=== PATIENT | female | born 1955 | race Caucasian/White ===

== ENCOUNTER 2016-11-24 17:03 | Emergency (ER) | payer OTHER ==
[2016-11-24] MEDS ORDERED: IPRATROPIUM/ALBUTEROL 3 ML DEYVIAL IH ONE (17:20)
[2016-11-24 17:38] VITALS: PULSE 101; TEMP 98.2
--- NOTE | 2016-11-24 17:41 | UCPHY ---
H & P Time Seen by Provider: 11/24/16 17:18 Patient Type: Established HPI/ROS: This patient presents with a chief complaint of a persistent cough which started on the 11 of November and seems to be worsening such that she is having difficulty sleeping. A time she has coughed to the degree that she feels like she might vomit although she is not. She also has sore throat, nasal congestion and plugged ears. She feels short of breath with an achy chest and headache. She attributes a lot of the symptoms to her persistent cough. She does not think she has had fever. 2 days ago he was seen by her primary care physician and she has been on 40 mg of prednisone and Augmentin since. She does not think the medications have helped. She did have a test for pertussis done which is reportedly negative. She has a child at home with similar symptoms. REVIEW OF SYSTEMS: Constitutional: The no fever, positive for malaise Eyes: No complaints ENT: Sore throat, nasal congestion, plugged ears Respiratory: Persistent cough sometimes productive, shortness of breath Cardiac: Achy chest Gastrointestinal: Nausea without vomiting or diarrhea, no abdominal pain Genitourinary: Not addressed Musculoskeletal: Not addressed Skin: No rash Neurological: Headache Smoking Status: Never smoked Physical Exam: GENERAL: Well-appearing, well-nourished she has a persistent hacky cough which seems to be precipitated by expiration and speaking HEAD: Atraumatic, normocephalic. EYES: Pupils equal round and reactive to light, extraocular movements intact, sclera anicteric, conjunctiva are normal. ENT: TMs normal, nares patent, oropharynx clear without exudates. Moist mucous membranes. NECK: Normal range of motion, supple without lymphadenopathy or JVD. LUNGS: This exam was done after the administration of 1 DuoNeb. I heard minimal wheezing in the expiratory phase of respiration did not seem to be prolonged HEART: Regular rate and rhythm EXTREMITIES: Normal range of motion, NEUROLOGICAL: Cranial nerves II through XII grossly intact. Normal speech, normal gait. PSYCH: Normal mood, normal affect. SKIN: Warm, dry, normal turgor, no visible rashes or lesions. Constitutional: Initial Vital Signs Temperature (C) 36.8 C 11/24/16 17:36 Heart Rate 101 H 11/24/16 17:36 Respiratory Rate 24 H 11/24/16 17:36 Blood Pressure 161/103 H 11/24/16 17:36 O2 Sat (%) 91 L 11/24/16 17:36 O2 Delivery Mode Room Air Allergies/Adverse Reactions: codeine Allergy (Verified 11/24/16 17:31) gentamicin sulfate [From Garamycin] Allergy (Verified 11/24/16 17:31) Home Medications: Medication Instructions Recorded ALBUTEROL SULFATE 11/24/16 Albuterol Sulfate [ALBUTEROL 0.63 mg IH QID #20 vial.neb 11/24/16 SULFATE] Augmentin 1000MG ER Tablet (*) 11/24/16 Prednisone 11/24/16 Zithromax 11/24/16 Medical Decision Making - Diagnostics Imaging: A chest x-ray shows no evidence of pneumonia but does show some evidence for acute bronchitis. ED Course/Re-evaluation: The patient was given 1 DuoNeb prior to my evaluation. Differential Diagnosis: This patient seems to be receiving maximal therapy at this time. I feel it is safe for her to go home since she does not have pneumonia. The - Data Points Medications Given: Discontinued Medications Albuterol/Ipratropium (Duoneb) 3 ml IH EDNOW ONE Stop: 11/24/16 17:21 Last Admin: 11/24/16 17:20 Dose: 3 ml Departure - Departure Disposition: Home, Routine, Self-Care Clinical Impression: Asthma exacerbation Acute bronchitis Qualifiers: Bronchitis organism: unspecified organism Qualifier Code: (J20.9) Acute bronchitis, unspecified Condition: Good Instructions: Acute Bronchitis (ED), Bronchospasm (ED) Additional Instructions: If your symptoms have not improved in the next 2 or 3 days you should follow-up with your primary care physician. Continue using your medications as prescribed. Referrals: Liberty Quintanilla MD [Primary Care Provider] - As per Instructions Prescriptions: Albuterol Sulfate [ALBUTEROL SULFATE] 0.63 mg IH QID #20 vial.neb - PQRS PQRS Measurement: Not applicable
--- NOTE | 2016-11-24 17:43 | DX ---
PA and Lateral Chest X-Ray 1736 hours History: Persistent cough and wheezing. Findings: Heart size and pulmonary vasculature are normal. There is arteriosclerotic calcification at the aortic arch level. There is mild peribronchial cuffing seen in the perihilar region and promin ence of perihilar interstitial markings. There are no peripheral infiltrates or effusions. Mild degen erative osteophytes are noted mid thoracic spine. Impression: Mild prominence of perihilar interstitial markings and peribronchial cuffing. Findings ar e nonspecific but can be seen with bronchitis, reactive airway disease, or viral process.
[2016-11-24 18:12] VITALS: BP 146/97; RESP 20; O2SAT 92
== END 2016-11-24 18:13 | disposition home or self-care (01) ==
LOC: CED 17:03
DX: J45.901 Unspecified asthma with (acute) exacerbation (principal); J20.9 Acute bronchitis, unspecified
CPT/HCPCS: 71020-PO; 99214-PO; G0463-PO

== ENCOUNTER 2018-09-09 15:29 | Inpatient (IN) | payer OTHER ==
[2018-09-09] MEDS ORDERED: ONDANSETRON 4 MG/2 ML VIAL IVP ONE ×2 (15:40→19:00)
[2018-09-09] MEDS ORDERED: HYDROmorphONE/DILAUDID 2 MG/ML INJ IVP ONE ×3 (15:40→18:49)
[2018-09-09] MEDS ORDERED: NS 1,000 ML IV ONE (15:40)
--- NOTE | 2018-09-09 15:44 | EDPHY ---
H & P Time Seen by Provider: 09/09/18 15:38 HPI/ROS: CHIEF COMPLAINT: Epigastric pain HISTORY OF PRESENT ILLNESS: The patient is a 63-year-old female who comes to the emergency department complaining of nausea, vomiting, diarrhea and abdominal pain. She reports 4 episodes of vomiting this morning and 6 episodes of diarrhea. Nonbloody. No fever. She also describes bloating and epigastric pain. She states that this is somewhat similar to gallbladder attack she had 4 years ago. She has not had any abdominal surgeries. She denies urinary symptoms. No vaginal symptoms. No chest pain or shortness of breath. She states that she has had similar episodes twice over the last 3 weeks. Each time it lasted for about half of a day and then resolved spontaneously. Severity: Severe Modifying factors: None REVIEW OF SYSTEMS: Constitutional: denies: chills, fever, recent illness, recent injury EENTM: denies: blurred vision, double vision, nose congestion Respiratory: denies: cough, shortness of breath Cardiac: denies: chest pain, irregular heart rate, lightheadedness, palpitations Gastrointestinal/Abdominal: See HPI Genitourinary: denies: dysuria, frequency, hematuria, pain Musculoskeletal: denies: joint pain, muscle pain Skin: denies: lesions, rash, jaundice, bruising Neurological: denies: headache, numbness, paresthesia, tingling, dizziness, weakness Hematologic/Lymphatic: denies: blood clots, easy bleeding, easy bruising Immunologic/allergic: denies: HIV/AIDS, transplant 10 systems reviewed and negative except as noted EXAM: GENERAL: Uncomfortable appearing, moderate distress. HEAD: Atraumatic, normocephalic. EYES: Pupils equal round and reactive to light, extraocular movements intact, sclera anicteric, conjunctiva are normal. ENT: TMs normal, nares patent, oropharynx clear without exudates. Moist mucous membranes. NECK: Normal range of motion, supple without lymphadenopathy or JVD. LUNGS: Breath sounds clear to auscultation bilaterally and equal. No wheezes rales or rhonchi. HEART: Regular rate and rhythm without murmurs, rubs or gallops. ABDOMEN: Mild distention, mild epigastric tenderness. No lower abdominal tenderness. BACK: No CVA tenderness, no spinal tenderness, step-offs or deformities EXTREMITIES: Normal range of motion, no pitting or edema. No clubbing or cyanosis. NEUROLOGICAL: Cranial nerves II through XII grossly intact. Normal speech, normal gait. 5/5 strength, normal movement in all extremities, normal sensation , normal reflexes PSYCH: Normal mood, normal affect. SKIN: Warm, dry, normal turgor, no visible rashes or lesions. Source: Patient, Family, EMS Exam Limitations: No limitations - Personal History Tetanus Vaccine Date: unsure - Medical/Surgical History Hx Asthma: Yes Hx Chronic Respiratory Disease: No Hx Diabetes: No Hx Cardiac Disease: No Hx Renal Disease: No Hx Cirrhosis: No Hx Alcoholism: No Hx HIV/AIDS: No Hx Splenectomy or Spleen Trauma: No Other PMH: d&c - Family History Significant Family History: No pertinent family hx - Social History Smoking Status: Never smoked Alcohol Use: None Drug Use: None Constitutional: Initial Vital Signs Temperature (C) 36.5 C 09/09/18 15:40 Heart Rate 98 09/09/18 15:40 Respiratory Rate 16 09/09/18 15:40 Blood Pressure 165/116 H 09/09/18 15:40 O2 Sat (%) 97 09/09/18 15:40 O2 Delivery Mode Room Air Allergies/Adverse Reactions: codeine Allergy (Verified 09/09/18 18:09) gentamicin sulfate [From Garamycin] Allergy (Verified 09/09/18 18:09) Home Medications: Medication Instructions Recorded Albuterol Sulfate [ALBUTEROL 0.63 mg IH QID #20 vial.neb 11/24/16 SULFATE] Medical Decision Making - Diagnostics EKG Interpretation: An EKG obtained and was read and documented in trace view. Please see trace view for full reading and report. Sinus rhythm, no acute ischemic changes Imaging Results: Imaging Impressions Abdomen Ultrasound 09/09/18 15:42 Impression: 1. Intra and extrahepatic biliary dilatation. ERCP or MRCP may be useful for further evaluation. 2. Cholelithiasis without evidence of cholecystitis. Findings discussed with ANDREA PEARSON 09/09/2018 at 16:48. Abdomen CT 09/09/18 16:55 Impression: 1. Cholelithiasis with choledocholithiasis and moderate biliary ductal dilatation. 2. No CT evidence of appendicitis, abscess or bowel obstruction. Findings discussed with Andrea Pearson M.D. at 18:42 hour, 09/09/2018. Imaging: Discussed imaging studies w/ scallop cutter Radiologist ED Course/Re-evaluation: 4:50 p.m. the patient felt better initially but her pain is returning. She is also not complaining of pain in her right lower quadrant. She has an indeterminate ultrasound. There gallstones present and a slightly dilated common bile duct however normal LFTs and no sign of wall thickening or edema or distension on ultrasound. I will add on a lipase which will need to be Curriered to [place]. I will also add on a CT scan. 6:45 p.m. the patient has choledocholithiasis. She has continued pain and is asking for 3rd dose of Dilaudid. I recommended admission the hospital. She and her family agree. I have paged the hospitalist service for admission. 6:50 p.m. the patient and would prefer to drive themselves. I spoke with Dr. Velázquez who accepted admission. Differential Diagnosis: Partial list of the Differential diagnosis considered include but were not limited to; biliary disease, peptic ulcer disease, urinary tract infection and although unlikely based on the history and physical exam, I also considered kidney stone, appendicitis, diverticulitis, obstruction, volvulus. - Data Points Laboratory Results: 09/09/18 09/09/18 09/09/18 17:20 16:02 15:59 POC Sodium 141 mEq/L mEq/L (135-145) POC Potassium 3.7 mEq/L mEq/L (3.3-5.0) POC Chloride 104.0 mEq/L mEq/L (97-110) POC Total CO2 24 mEq/L mEq/L (22-31) POC BUN 11 mg/dL mg/dL (7-23) POC Creatinine 0.7 mg/dL mg/dL (0.6-1.0) POC Glucose 116 mg/dL H mg/dL (70-100) POC Calcium 10.0 mg/dL mg/dL (8.5-10.4) POC Total Bilirubin 0.6 mg/dL mg/dL (0.1-1.4) POC AST 30 IU/L IU/L (14-46) POC ALT 24 IU/L IU/L (9-52) POC Alk Phosphatase 82 IU/L IU/L (38-126) POC Troponin I 0.00 ng/mL ng/mL (0.00-0.08) POC Total Protein 7.9 g/dL g/dL (6.3-8.2) POC Albumin 4.2 g/dL g/dL (3.5-5.0) Lipase Urine RBC NONE SEEN /hpf /hpf (0-3) Urine WBC 1-3 /hpf /hpf (0-3) Ur Epithelial Cells NONE SEEN /lpf /lpf (NONE-1+) Amorphous Sediment PRESENT /hpf /hpf (NONE-1+) Urine Mucus TRACE /lpf /lpf (NONE-1+) 09/09/18 15:50 POC Sodium POC Potassium POC Chloride POC Total CO2 POC BUN POC Creatinine POC Glucose POC Calcium POC Total Bilirubin POC AST POC ALT POC Alk Phosphatase POC Troponin I POC Total Protein POC Albumin Lipase 50 IU/L IU/L (23-300) Urine RBC Urine WBC Ur Epithelial Cells Amorphous Sediment Urine Mucus Medications Given: Discontinued Medications Hydromorphone HCl (Dilaudid) 0.5 mg IVP EDNOW ONE Stop: 09/09/18 15:41 Last Admin: 09/09/18 16:04 Dose: 0.5 mg Hydromorphone HCl (Dilaudid) 0.5 mg IVP EDNOW ONE Stop: 09/09/18 16:55 Last Admin: 09/09/18 17:22 Dose: 0.5 mg Hydromorphone HCl (Dilaudid) 0.5 mg IVP EDNOW ONE Stop: 09/09/18 18:50 Last Admin: 09/09/18 18:57 Dose: 0.5 mg Sodium Chloride (Ns) 1,000 mls @ 0 mls/hr IV EDNOW ONE; Wide Open PRN Reason: Protocol Stop: 09/09/18 15:41 Last Admin: 09/09/18 15:50 Dose: 1,000 mls Ondansetron HCl (Zofran) 4 mg IVP EDNOW ONE Stop: 09/09/18 15:41 Last Admin: 09/09/18 16:01 Dose: 4 mg Ondansetron HCl (Zofran) 4 mg IVP EDNOW ONE Stop: 09/09/18 19:01 Last Admin: 09/09/18 19:05 Dose: 4 mg Promethazine HCl (Phenergan) 12.5 mg IVP ONCE ONE Stop: 09/09/18 19:44 Last Admin: 09/09/18 19:52 Dose: 12.5 mg Point of Care Test Results: CBC CBC Collection Date 09/09/18 CBC Collection Time 15:50 WBC 9.2 RBC 4.92 HGB 15 HCT 44.8 PLT 295 Neut # 8.1 Neut 87.4 LYMPH # 0.9 LYMPH 10.1 Other WBC # 0.2 Other WBC 2.5 MCV 91.1 Chemistry 09/09/18 09/09/18 16:02 15:59 POC Sodium 141 mEq/L mEq/L (135-145) POC Potassium 3.7 mEq/L mEq/L (3.3-5.0) POC Chloride 104.0 mEq/L mEq/L (97-110) POC Total CO2 24 mEq/L mEq/L (22-31) POC BUN 11 mg/dL mg/dL (7-23) POC Creatinine 0.7 mg/dL mg/dL (0.6-1.0) POC Glucose 116 mg/dL H mg/dL (70-100) POC Calcium 10.0 mg/dL mg/dL (8.5-10.4) POC Total Bilirubin 0.6 mg/dL mg/dL (0.1-1.4) POC AST 30 IU/L IU/L (14-46) POC ALT 24 IU/L IU/L (9-52) POC Alk Phosphatase 82 IU/L IU/L (38-126) POC Troponin I 0.00 ng/mL ng/mL (0.00-0.08) POC Total Protein 7.9 g/dL g/dL (6.3-8.2) POC Albumin 4.2 g/dL g/dL (3.5-5.0) Urine Dip Collection Date 09/09/18 Collection Time 17:20 Specific [place] (1.002-1.030) 1.015 PH (5.0-7.5) 7.5 Leukocytes (Negative) Trace Nitrites (Negative) Negative Protein (Negative) Negative Glucose (Negative) Negative Ketones (Negative) 2+ Urobilnogen (0.2-1.0 EU) 0.2 Bilirubin (Negative) Negative Blood (Negative) Negative Departure - Departure Disposition: [facility] Acute Clinical Impression: Choledocholithiasis Condition: Fair
--- NOTE | 2018-09-09 16:25 | CPEKG ---
Test Reason : OPEN Blood Pressure : / mmHG Vent. Rate : 079 BPM Atrial Rate : 080 BPM P-R Int : 158 ms QRS Dur : 100 ms QT Int : 433 ms P-R-T Axes : 063 021 031 degrees QTc Int : 497 ms Sinus rhythm Borderline prolonged QT interval Confirmed by Luis Dubose ([id number]) on 09/09/2018 4:24:57 PM Referred By: Confirmed By:Luis Dubose
[2018-09-09] MEDS ORDERED: IOPAMIDOL (ISOVUE-300) 100 ML BTL ONE (17:17)
[2018-09-09] MEDS ORDERED: PROMETHAZINE HCL 25 MG/ML INJ IVP ONE (19:43)
[2018-09-09] MEDS ORDERED: PROMETHAZINE HCL 25 MG/ML INJ ONE (19:46)
[2018-09-09] MEDS ORDERED: HYDROmorphONE/DILAUDID 1 MG/ML INJ IVP PRN (20:41)
[2018-09-09] MEDS ORDERED: ONDANSETRON DISINTEGRATING 4 MG TAB PO PRN (20:41)
[2018-09-09] MEDS ORDERED: ONDANSETRON 4 MG/2 ML VIAL IVP PRN (20:41)
[2018-09-09] MEDS: NS 1,000 ML IV SCH (22:00)
[2018-09-09] MEDS: PROMETHAZINE HCL 25 MG/ML INJ IVP PRN (22:10)
--- NOTE | 2018-09-10 00:39 | PDGENHP ---
History and Physical - Chief Complaint Abdominal pain, nausea and vomiting - History of Present Illness Source-patient provides history appears reliable. Her is at bedside supplements details. EMR was reviewed and case discussed with accepting hospitalist. HPI-this is a very pleasant 63-year-old female with past medical history significant for mild intermittent asthma, history of cholelithiasis who presents to the emergency department today with complaints of several days of intermittent and now persistent epigastric pain. Patient reports that she has had several episodes of nausea/vomiting and diarrhea. She denies any hematemesis, melena or hematochezia. Patient reports occasional chills but no fevers. Reports that for the last 3 weeks she has had approximately 1 episode similarly but symptoms usually resolved after half a day. Today's pain was more severe and did not resolve on its own. Patient denies any scleral icterus or jaundice. Patient also endorses abdominal distension bloating and epigastric pain radiating down her right anterior abdomen. Patient denies any dysuria hematuria. History Information - Allergies/Home Medication List Allergies/Adverse Reactions: codeine Allergy (Verified 09/09/18 18:09) gentamicin sulfate [From Garamycin] Allergy (Verified 09/09/18 18:09) I have personally reviewed and updated: family history, medical history, social history, surgical history - Past Medical History asthma Additional medical history: Cholelithiasis - Surgical History Additional surgical history: Patient denies. - Family History Additional family history: Mother and father with gallbladder disease - Social History Smoking Status: Never smoked Alcohol Use: None Drug Use: None Additional social history: Patient is lives with her . Cor status-full. Review of Systems Review of Systems: ROS: 10pt was reviewed & negative except for what was stated in HPI & below Constitutional: Reports: chills. Denies: fever EENMT: Reports: no symptoms Cardiac: Denies: edema, irregular heart rate Respiratory: Reports: no symptoms Gastrointestinal: Reports: vomitting, abdominal pain, abdominal distention, diarrhea, nausea Genitourinary: Reports: no symptoms Muscolosketal: Reports: no symptoms Skin: Reports: no symptoms Neurological: Reports: no symptoms Physical Exam Physical Exam: Selected Entries 09/09/18 15:40 Blood Pressure Automatic Method Heart Rate 98 Respiratory 16 Rate O2 Sat (%) 97 Temperature (C) 36.5 C Blood Pressure 165/116 H Mean Arterial 132 H Pressure (MAP) O2 Delivery Room Air Mode Temperature Oral Source Temp Pulse Resp BP Pulse Ox 36.8 C 81 16 122/82 H 90 L 09/09/18 22:48 09/09/18 22:48 09/09/18 22:48 09/09/18 22:48 09/09/18 22:48 O2 (L/minute) 2 Constitutional: no apparent distress, uncomfortable, other (NAD. Patient is asleep at time of interview she wakes easily to name. She does appear increasingly uncomfortable when woken up and crater ulcer abdomen. at bedside. Patient appears quite fatigued but nontoxic.) Eyes: PERRL (Decreased reactivity light bilaterally but symmetric.), anicteric sclera, EOMI Ears, Nose, Mouth, Throat: dry mucous membranes, other (No nasal discharge), No poor dentition Cardiovascular: regular rate and rhythym, no murmur, rub, or gallop, pulses symmetric bilaterally, No edema Peripheral Pulses: 2+: dorsalis-pedis (R), dorsalis-pedis (L) Respiratory: no respiratory distress, no rales or rhonchi, clear to auscultation , reduced air movement (Decreased inspiratory effort with clear.) Gastrointestinal: no palpable masses, tenderness (Diffuse abdominal pain with light palpation upper abdomen.), distension, other (Hypoactive bowel sounds.), No guarding Genitourinary: no bladder tenderness, No gimenez in urethra Skin: warm, no rashes or abrasions, No pressure ulcer Musculoskeletal: generalized weakness (Patient still moves all extremities and sits up independently.), No pain with ROM Neurologic: AAOx3, sensation intact bilaterally, other (Grossly nonfocal), No facial droop Psychiatric: interacting appropriately, not anxious, not encephalopathic, thought process linear, other, No poor insight, No poor judgement, No poor memory Lab Data & Imaging Review POC Sodium 141 mEq/L (135-145) 09/09/18 15:59 POC Potassium 3.7 mEq/L (3.3-5.0) 09/09/18 15:59 POC Chloride 104.0 mEq/L (97-110) 09/09/18 15:59 POC Total CO2 24 mEq/L (22-31) 09/09/18 15:59 POC BUN 11 mg/dL (7-23) 09/09/18 15:59 POC Creatinine 0.7 mg/dL (0.6-1.0) 09/09/18 15:59 POC Glucose 116 mg/dL (70-100) H 09/09/18 15:59 POC Calcium 10.0 mg/dL (8.5-10.4) 09/09/18 15:59 POC Total Bilirubin 0.6 mg/dL (0.1-1.4) 09/09/18 15:59 POC AST 30 IU/L (14-46) 09/09/18 15:59 POC ALT 24 IU/L (9-52) 09/09/18 15:59 POC Alk Phosphatase 82 IU/L (38-126) 09/09/18 15:59 POC Troponin I 0.00 ng/mL (0.00-0.08) 09/09/18 16:02 POC Total Protein 7.9 g/dL (6.3-8.2) 09/09/18 15:59 POC Albumin 4.2 g/dL (3.5-5.0) 09/09/18 15:59 Lipase 50 IU/L (23-300) 09/09/18 15:50 Urine RBC NONE SEEN /hpf (0-3) 09/09/18 17:20 Urine WBC 1-3 /hpf (0-3) 09/09/18 17:20 Ur Epithelial Cells NONE SEEN /lpf (NONE-1+) 09/09/18 17:20 Amorphous Sediment PRESENT /hpf (NONE-1+) 09/09/18 17:20 Urine Mucus TRACE /lpf (NONE-1+) 09/09/18 17:20 WBC 9.2, H/H 15/44.8, plt 295, neutrophil %87.4 Imaging Review: Limited Right Upper Quadrant Ultrasound History: RUQ Abd Pain, possible cholelithiasis. Comparison: None available. Findings: The liver has normal echotexture and contour. The right lobe of the liver measures 18.7 cm. There is mild intrahepatic biliary dilatation. The common bile duct is 10.2 mm. No stones are identified in the visible portions of the common bile duct. Multiple gallstones are present in an otherwise normal gallbladder. The right kidney measures 9.1 cm. The kidney has normal echotexture and contour without hydronephrosis. The visible aorta is normal caliber . The visible portions of the pancreas are normal with limited visualization of the pancreatic head and tail. Impression: 1. Intra and extrahepatic biliary dilatation. ERCP or MRCP may be useful for further evaluation. 2. Cholelithiasis without evidence of cholecystitis. CT Scan of the Abdomen and Pelvis (With Contrast) 1807 hours History: Abdominal pain Technique: Axial computed tomographic images of the abdomen and pelvis were obtained with the uneventful intravenous administration of 90 mL Isovue-300 contrast. Images were reviewed in multiple planes. Dose reduction techniques were utilized. Comparison to right upper quadrant abdominal ultrasound performed earlier today at [address] Abdomen and Pelvis Findings: Biliary system: Numerous calcified gallstones are layering in the dependent aspect of the gallbladder. There is moderate biliary ductal dilatation with the common bile duct measuring up to 13 mm in diameter. Within the distal common bile duct just above the duodenum there is a 2 mm calculus. Mild intrahepatic biliary ductal dilatation is seen centrally. Lung bases: Normal. Liver: There are scattered small subcentimeter hypodensities in the liver statistically representing incidental cysts.. Spleen: Normal. Pancreas: Normal. Adrenals: Normal. Kidneys: No obstruction or solid masses. Abdominal Aorta: No aneurysm. Pelvic structures: The uterus has a normal contour. No adnexal masses are seen. Bladder: Normal. Appendix: Not visualized. Bowel Loops: Normal. No bowel obstruction, ascites, or significant retroperitoneal lymphadenopathy. Skeletal system: Vertebral body heights are well-maintained. There are no significant lytic or sclerotic osseous lesions. Impression: 1. Cholelithiasis with choledocholithiasis and moderate biliary ductal dilatation. 2. No CT evidence of appendicitis, abscess or bowel obstruction. Findings discussed with Luis Dubose M.D. at 18:42 hour, 09/09/2018. Dictated By: Ralph Meade MD Visualized and Interpreted imaging results: Yes EKG additional interpertation: NSR in the 70s. No acute ST changes. QTC 497. Normal EKG. Assessment & Plan Assessment: Pleasant 63-year-old female with past medical history significant for mild intermittent asthma and cholelithiasis who presents with complaints of intractable epigastric abdominal pain and distension. #Choledocholithiasis (Acute) with biliary dilation-2 mm distal stone is noted on CT scan with a dilated biliary tract of 13 mm. GI consulted for further evaluation consideration of intervention for biliary obstruction. consulted and he will see the patient in the morning. Patient's initial laboratory studies without any rise in LFTs. Repeat CMP has been ordered for a.m.. Discussed with patient and her regarding plan for GI evaluation and possible ERCP. In addition recommend and the patient also be evaluated by General surgery for consideration of cholecystectomy. and previously knew about gallstones and had a plan to manage with dietary control. They are not sure that they would want to consider an inpatient cholecystectomy and desired to discuss after reviewing details of their insurance coverage. #Intractable abdominal pain - epigastric abdominal pain secondary to choledocholithiasis/biliary obstruction. Plan as noted above. #Nausea vomiting - currently controlled. Zofran p.r.n.. #Asthm, mild intermittent -no current exacerbation. albuterol p.r.n. FEN - IV fluids overnight while NPO. Electrolyte monitoring replacement if needed. PPX-SCDs. Holding anticoagulation until further evaluation by GI. Cor status-full. Disposition-patient admitted to inpatient status on the med surge floor given the evidence of obstructive process anticipate greater than 2 midnight stay for additional evaluation and possible intervention.
[2018-09-10 05:12] LABS: PLATELET COUNT 253 10^3/uL (150-400)
[2018-09-10] MEDS: NS 1,000 ML IV SCH (08:33)
[2018-09-10] MEDS: ACETAMINOPHEN 325 MG TAB PO PRN ×2 (08:36→22:16)
[2018-09-10] MEDS ORDERED: ENOXAPARIN 40 MG/0.4 ML SYR SC SCH (09:00)
--- NOTE | 2018-09-10 09:52 | PDMN ---
Medical Necessity Medical necessity: MCG 63 yo w/ acute choledocholithiasis w/ biliary dilation-2 mm distal stone is noted on CT scan with a dilated biliary tract of 13 mm. GI consult. ERCP vs. surgical intervention. Pt w/ s/sx intractable abd pain, n/v. Hypertensive 160s/110s, IVF started, IV opioids and IV antiemetics for s/sx management. NPO status. serial labs ordered. PT/OT consults. Disposition- patient admitted to inpatient status on the [facility] surge floor given the evidence of obstructive process anticipate greater than 2 midnight stay for additional evaluation and possible intervention. Hx asthma, cholelithiasis
[2018-09-10] MEDS ORDERED: GLUCAGON HCL 1 MG VIAL ONE ×2 (11:31→12:05)
[2018-09-10] MEDS ORDERED: IOTHALAMATE MEG (CONRAY) 50 ML VIAL IV ONE (11:32)
--- NOTE | 2018-09-10 12:02 | PDANEPAE ---
ANE History of Present Illness cholelithiasis here for ERCP ANE Past Medical History - Cardiovascular History Hx Hypertension: No Hx Arrhythmias: No Hx Chest Pain: No Hx Coronary Artery / Peripheral Vascular Disease: No - Pulmonary History Hx COPD: No Hx Asthma/Reactive Airway Disease: Yes Hx Sleep Apnea: No Sleep Apnea Screening Result - Last Documented: Negative - Endocrine History Hx Diabetes: No - Chronic Pain History Chronic Pain: No ANE Review of Systems Review of Systems: - Exercise capacity Exercise capacity: >=4 METS ANE Patient History - Allergies Allergies/Adverse Reactions: codeine Allergy (Verified 09/10/18 08:29) Vomiting gentamicin sulfate [From Garamycin] Allergy (Verified 09/10/18 08:29) Hives - Home Medications Home Medications: Albuterol [Proventil Inhaler HFA (*)] 1 - 2 puffs IH DAILY PRN 09/10/18 [Last Taken Unknown] Aspirin [Aspirin 325 mg (*)] 325 mg PO DAILY PRN 09/10/18 [Last Taken Unknown] Herbals/Supplements -Info Only 1 ea PO DAILY 09/10/18 [Last Taken Unknown] [place]-3 Fatty Acids [Fish Oil 1000 mg (*)] 1,000 mg PO DAILY 09/10/18 [Last Taken Unknown] - NPO status NPO Status: no food or drink >8 hours NPO Since - Liquids (Date): 09/10/18 NPO Since - Liquids (Time): 00:00 NPO Since - Solids (Date): 09/10/18 NPO Since - Solids (Time): 00:00 - Anes Hx Anes Hx: slow to awaken from anesthesia - Smoking Hx Smoking Status: Never smoked - Alcohol Use Alcohol Use: Rarely - Family Anes Hx Family Anes Hx: none ANE Labs/Vital Signs - Labs Result Diagrams: 09/10/18 04:55 09/10/18 04:55 - Vital Signs Blood Pressure: 130/69 Heart Rate: 81 Respiratory Rate: 16 O2 Sat (%): 93 Height: 175.26 cm Weight: 83.915 kg ANE Physical Exam - Airway Neck exam: FROM Mallampati Score: Class 2 Mouth exam: normal dental/mouth exam - Pulmonary Pulmonary: no respiratory distress, clear to auscultation - Cardiovascular Cardiovascular: regular rate and rhythym, no murmur, rub, or gallop - ASA Status ASA Status: II ANE Anesthesia Plan Anesthesia Plan: general endotracheal anesthesia
[2018-09-10] MEDS ORDERED: LR 1,000 ML IV ONE (12:04)
[2018-09-10] MEDS ORDERED: MIDAZOLAM 2 MG/2 ML VIAL IVP ONE ×2 (12:06→12:20)
[2018-09-10] MEDS ORDERED: ROCURONIUM 50 MG/5 ML VIAL ONE (12:09)
[2018-09-10] MEDS ORDERED: LIDOCAINE 2% 100 MG/5 ML SYR ONE (12:09)
[2018-09-10] MEDS ORDERED: PROPOFOL 200 MG/20 ML VIAL ONE (12:09)
[2018-09-10] MEDS ORDERED: fentaNYL 100 MCG/2 ML INJ ONE (12:09)
--- NOTE | 2018-09-10 12:22 | SOAPPROG ---
SOAP Progress Note Assessment/Plan: Assessment:Plan: see full dictated consult 63 y/o female with CBD stone on CT, multiple stones in GB duct is dilated but her LFT's are nml needs ERCp followed by leeann Mcginnis MD [phone] 09/10/18 12:21 Objective: Vital Signs Temp Pulse Resp BP Pulse Ox 36.8 C 91 18 140/88 H 93 09/10/18 12:09 09/10/18 12:09 09/10/18 12:09 09/10/18 12:09 09/10/18 12:09 Laboratory Results 09/10/18 04:55 09/10/18 04:55 09/09/18 09/10/18 09/11/18 05:59 05:59 05:59 Intake Total 1000 Balance 1000 ICD10 Worksheet Patient Problems: Problems Problem Status Onset Choledocholithiasis Acute
[2018-09-10] MEDS ORDERED: INDOMETHACIN 50 MG SUPP PR ONE ×2 (12:36→12:52)
--- NOTE | 2018-09-10 12:42 | ASMTCMCOM ---
CM Note CM Note Notes: 09/10/2018 Case Management Note Reviewed chart. Pt admitted for nausea, vomiting and abdominal pain. There are no case management d/c needs identified d/t pt age, independence with ADL's prior to admission, marital status and employment status. There are no PT or OT evals ordered at this time. Case Management d/c poc: anticipating independent with follow up as directed. Case Management to follow. Date Signed: 09/10/2018 12:42 PM Electronically Signed By:Annie Solares RN
[2018-09-10] MEDS ORDERED: ONDANSETRON 4 MG/2 ML VIAL ONE (12:52)
[2018-09-10] MEDS ORDERED: DEXAMETHASONE 4 MG/ML VIAL ONE (12:52)
[2018-09-10] MEDS ORDERED: oxyCODONE IR 5 MG TAB PO PRN (13:24)
[2018-09-10] MEDS ORDERED: fentaNYL 100 MCG/2 ML INJ IVP PRN (13:24)
[2018-09-10] MEDS ORDERED: NALOXONE HCL 0.4 MG/ML INJ IVP PRN (13:24)
[2018-09-10] MEDS ORDERED: PROMETHAZINE HCL 25 MG/ML INJ IVP PRN (13:24)
[2018-09-10] MEDS ORDERED: ONDANSETRON 4 MG/2 ML VIAL IVP PRN (13:24)
[2018-09-10] MEDS ORDERED: ACETAMINOPHEN 500 MG TAB PO PRN (13:24)
--- NOTE | 2018-09-10 13:25 | GIREPORT ---
[facility] Surgical [facility] - Endoscopy Department Patient Name: Floridalma Mohr Procedure Date: 09/10/2018 12:11 PM Patient Type: Inpatient Attending MD/ ER Physician: Eric Gutierrez Procedure: ERCP Indications: Common bile duct stone(s), Abnormal abdominal CT, Biliary dilation on Computed Tomogram Scan, Bile duct stone on Computed Tomogram Scan Providers: Conrad Mcginnis MD Referring MD: Fam Veláqzuez MD Medicines: General Anesthesia Complications: No immediate complications. Estimated blood loss: None Description of Procedure: After obtaining informed consent, the scope was passed under direct vis ion. Throughout the procedure, the patient's blood pressure, pulse, and oxyg en saturations were monitored continuously. The Duodenalscope was introduc ed through the mouth, and advanced to the duodenum and used to inject cont rast into the bile duct. The ERCP was accomplished without difficulty. The patient tolerated the procedure well. Findings: The communication electronic technician film was normal. The major papilla was normal. A 12 mm biliar y sphincterotomy was made with a braided traction (standard) sphincteroto me using ERBE electrocautery. There was no post-sphincterotomy bleeding. T he lower third of the main bile duct contained one stone, which was 2 mm i n diameter. The main bile duct was diffusely dilated, uncertain etiology. The largest diameter was 12 mm. The biliary tree was swept with a 12 mm bal loon starting at the bifurcation. One stone was removed. No stones remained. Estimated Blood Loss: Estimated blood loss: none. Post Op Diagnosis: - The major papilla appeared normal. - The entire main bile duct was dilated, uncertain etiology. Suspect sm oth distal stricture related to stone disease - Choledocholithiasis was found. Complete removal was accomplished by biliary sphincterotomy and balloon extraction. - A biliary sphincterotomy was performed. - The biliary tree was swept. Recommendation: - [facility]. - Refer to a surgeon today for consideration of Lap Vanesa - Clear liquid diet. - Thank you for allowing me to help in your patient's care. Do not hesi kennedy to call with any questions. Attending Participation: I personally performed the entire procedure. Rahel Martines M.D Conrad Mcginnis MD 09/10/2018 1:25:41 PM This report has been signed electronicallyMatheyael Mcginnis MD Number of Addenda: 0 Note Initiated On: 09/10/2018 12:11 PM [email or web address]
--- NOTE | 2018-09-10 13:26 | POSTANESTH ---
Post Anesthetic Evaluation Cardiovascular Status: Normal, Stable, Similar to Pre-Op Cond Respiratory Status: Normal, Stable, Similar to Pre-op Cond. Level of Consciousness/Mental Status: Can Participate in Eval, Alert and Oriented Pain Control: Adequate, Prn Tx Ordered Nausea/Vomiting Control: Adequate, Prn Tx Ordered Complications Possibly Related to Anesthesia: None Noted
[2018-09-10] MEDS: PROMETHAZINE HCL 25 MG/ML INJ IVP PRN (14:29)
[2018-09-10] MEDS: HYDROCODONE/APAP 5/325 TAB PO PRN ×2 (14:32→16:44)
[2018-09-10] MEDS ORDERED: hydrALAZINE 20 MG/ML VIAL IVP PRN (15:02)
--- NOTE | 2018-09-10 18:34 | HOSPPROG ---
Hospitalist Progress Note Assessment/Plan: The patient is a 63-year-old female with PMH cholelithiasis and cholecystitis who was admitted for choledocholithiasis. ASSESSMENT/PLAN: Acute choledocholithiasis, status post ERCP with sphincterotomy and stone removal Cholelithiasis Abdominal pain, secondary to above -discussed case with GI -general surgery has been consulted for recs on gall bladder removal- Dr. Shelton -monitor for post-procedure complications such as pancreatitis or infection or bleeding. -prn analgesia/antiemetics. VTE prophylaxis: SCDs Code Status: Full code Status: Inpatient for greater than 2 midnight stay. Disposition: Med [facility] This patient is new to me. Reviewed patient's chart/records for this visit. ____ SUBJECTIVE: Today patient was seen after her procedure. She felt ok. OBJECTIVE: Physical Exam: General: The patient is a who is a female alert and in no acute distress. HEENT: normocephalic, extraocular movements intact, conjunctivae clear. Mucous membranes moist. Neck: trachea midline, no visible masses. Abd: nondistended. Musculoskeletal: Normal muscle tone/bulk. Neuro: cranial nerves II XII grossly intact. Intact gross motor and sensory function. Psych: Appropriate mood and appropriate affect. Skin: Mild pallor. No petechiae. Labs/Imaging/Other Tests: Personally reviewed/interpreted. RUQ ultrasound-cholelithiasis. Dilated bile duct. Abdominal CT-cholelithiasis, dilated common bile duct. Objective: Vital Signs Temp Pulse Resp BP Pulse Ox 36.7 C 82 20 135/73 H 94 09/10/18 17:11 09/10/18 17:11 09/10/18 17:11 09/10/18 17:11 09/10/18 17:11 Laboratory Results 09/10/18 04:55 09/10/18 04:55 09/09/18 09/10/18 09/11/18 05:59 05:59 05:59 Intake Total 1000 500 Output Total 0 Balance 1000 500 - Time Spent With Patient Time Spent with Patient: greater than 35 minutes Time Spent with Patient: Greater than 35 minutes spent on this patients care, greater than 50% of time spent counseling, educating, and coordinating care regarding the above mentioned plan. ICD10 Worksheet Patient Problems: Problems Problem Status Onset Choledocholithiasis Acute
[2018-09-11 05:18] LABS: PLATELET COUNT 230 10^3/uL (150-400)
--- NOTE | 2018-09-11 08:45 | GCON ---
DATE OF CONSULTATION: 09/10/2018 REFERRING PHYSICIAN: Kacie Herzog MD INDICATION: Abnormal imaging with choledocholithiasis and also cholelithiasis. HISTORY OF PRESENT ILLNESS: The patient is a very pleasant 63-year-old female, who has a history of asthma that seems to be related to infections and a history of cholelithiasis, in which she had what sounds like an episode of passed stone a number of years ago. She presented to the emergency room with a number of days of epigastric pain associated with nausea and vomiting. The pain got so severe that she actually had diarrhea. Her significant symptoms occurred on the morning of admission. She did not describe any fevers, chills, sweats. She did not have any chest pain, shortness of breath, diaphoresis. Since the pain did not resolve, she presented to the emergency room for evaluation. Laboratory studies were essentially normal, but CT scan showed evidence of choledocholithiasis, cholelithiasis, and a dilated biliary system. I have been called to help, evaluate, and treat that issue. PAST MEDICAL HISTORY: Asthma related to infection. She has not had a rescue inhaler for over 2 years. She does have gallstones. PAST SURGICAL HISTORY: She does not have any surgical history, other than wisdom teeth. Patient also had a colonoscopy. FAMILY HISTORY: Mother and father had gallbladder disease. SOCIAL HISTORY: Does not smoke. She drinks alcohol very rarely. She is , lives with her , who is present, as well as her daughter. MEDICATIONS: At home have included aspirin daily 325 mg, herbal supplements, omega fatty acids, and albuterol inhaler p.r.n. ALLERGIES: Gentamicin rash, codeine nausea In hospital, she is written for Tylenol p.r.n., hydrocodone p.r.n., apresoline p.r.n., Dilaudid p.r.n., Zofran p.r.n., Phenergan p.r.n. REVIEW OF SYSTEMS: Complete review of systems performed and negative other than in the HPI. Currently, she is feeling quite well. All of her pain has resolved. PHYSICAL EXAM: Well-developed, well-nourished female sitting on her bed, in no acute distress. Blood pressure is 130/69, pulse is 81, respiratory rate of 16, she is 93% on 2 L nasal cannula, temperature is 36.9. Eyes are anicteric. SPIKE , EOMI. MOUTH: No lesions. Moist mucous membranes. NECK: Supple. Full range of motion. No JVD. BACK: No spine tenderness. No CVA tenderness. Lungs are clear. CARDIAC: S1, S2. Regular rate and rhythm. No murmurs, rubs , or gallops appreciated. ABDOMEN: Bowel sounds are normal in pitch and frequency. Abdomen is soft, nontender even to deep palpation. No hepatosplenomegaly. EXTREMITIES: No cyanosis, clubbing, or edema. NEUROLOGIC : Cranial nerves intact, nonfocal. SKIN: No stigmata of advanced liver disease. No rashes. LABORATORY DATA: From September 10, WBC 6.64, hemoglobin 12.2, hematocrit 37.6, platelet count 253. Sodium 139, potassium 4.4, chloride 107, bicarb 25, BUN 12 , creatinine 0.7, glucose 98, calcium 9.1. Bilirubin 0.4, AST 19, ALT 25, alkaline phosphatase 61, albumin 3.3, total protein 6.2. From September 09, her lipase is 50, AST 30, ALT 24. IMAGING STUDIES: Abdominal ultrasound performed September 09 at 1542 in the afternoon revealed intrahepatic biliary dilatation, cholelithiasis, without evidence of cholecystitis. Abdominal CT scan performed September 09 at 1655 showed cholelithiasis with choledocholithiasis, and moderate biliary ductal dilatation. There is no CT evidence of appendicitis, abscess, or bowel perforation. The pancreas is normal. There is a 2 mm calculus in the distal common bile duct just above the duodenum. Mild intrahepatic biliary dilatation is seen centrally. The common bile duct measures up to 12-13 mm. ASSESSMENT: 1. Choledocholithiasis. 2. Cholelithiasis. 3. Abdominal pain consistent with symptomatic gallstones. 4. History of asthma. RECOMMENDATIONS: 1. Proceed with ERCP for evaluation and treatment of choledocholithiasis and abnormal imaging study with dilated duct, which is likely related to stone disease. 2. Do recommend cholecystectomy after ERCP clears the duct. 3. Colon cancer screening. Try to obtain previous colonoscopy report. 4. Further recommendations to follow results above and clinical course. Thank you for allowing me to participate in the patient's healthcare. Do not hesitate to call me if you have any questions. /[id number]/MODL MTDD
--- NOTE | 2018-09-11 09:02 | SOAPPROG ---
MYRIAM Progress Note Assessment/Plan: Assessment: 63 yo patient with cholelithiasis/choledocholithiasis. ERCP successful at stone extraction. My recommendation is for lap sherie this admission to prevent further complication. Discussed the procedure with the patient and family. Currently holding OR time at noon for interval sherie. full consultation to follow Plan: 09/11/18 08:59 Objective: Vital Signs Temp Pulse Resp BP Pulse Ox 36.8 C 86 16 148/85 H 93 09/11/18 07:24 09/11/18 07:24 09/11/18 07:24 09/11/18 07:24 09/11/18 07:24 Laboratory Results 09/11/18 04:33 09/11/18 04:33 09/10/18 09/11/18 09/12/18 05:59 05:59 05:59 Intake Total 1000 1200 Output Total 0 Balance 1000 1200 ICD10 Worksheet Patient Problems: Problems Problem Status Onset Choledocholithiasis Acute
--- NOTE | 2018-09-11 11:03 | SOAPPROG ---
MYRIAM Progress Note Assessment/Plan: Assessment/Plan: 63 Y F cholelithiasis, choledocholithiasis, s/p ERCP. Patient wants to proceed with surgery. Answered questions, but per patient most were answered yesterday by Dr. Shelton. Consent in chart. OR scheduled for noon for lap sherie. S: comfortable. tolerating clears. ready to have surgery. trying to study but head not totally clear. O: alert, nad no jaundice no wob abd soft, mild ruq tenderness 09/11/18 10:59 Objective: Vital Signs Temp Pulse Resp BP Pulse Ox 36.8 C 86 16 148/85 H 93 09/11/18 07:24 09/11/18 07:24 09/11/18 07:24 09/11/18 07:24 09/11/18 07:24 Laboratory Results 09/11/18 04:33 09/11/18 04:33 09/10/18 09/11/18 09/12/18 05:59 05:59 05:59 Intake Total 1000 1200 Output Total 0 Balance 1000 1200 ICD10 Worksheet Patient Problems: Problems Problem Status Onset Choledocholithiasis Acute
--- NOTE | 2018-09-11 12:52 | SOAPPROG ---
SOGURJIT Progress Note Assessment/Plan: Assessment:Plan: see full dictated consult 63 y/o female with CBD stone on CT, multiple stones in GB duct is dilated but her LFT's are nml needs ERCp followed by leeann tye Son Mcginnis MD [phone] 09/10/18 12:21 09/11/18 12:41 doing well post ERCP, lap sherie tomorrow no pain, wants solid food doing well A/P - CBD s/p ercp and clearance of duct, now with gallstone in her GB that need to be removed lap sherie in am regular diet now, NPO at md will sign off thank you Subjective: CC- CDB stone, gallstones feeling fine, no abdo pain wants solid food instead of clear liquids Objective: Vital Signs Temp Pulse Resp BP Pulse Ox 37.2 C 79 16 153/96 H 94 09/11/18 11:31 09/11/18 11:31 09/11/18 11:31 09/11/18 11:31 09/11/18 11:31 Laboratory Results 09/11/18 04:33 09/11/18 04:33 09/10/18 09/11/18 09/12/18 05:59 05:59 05:59 Intake Total 1000 1200 Output Total 0 Balance 1000 1200 CTA S1S2 +BS, soft nt ICD10 Worksheet Patient Problems: Problems Problem Status Onset Choledocholithiasis Acute
--- NOTE | 2018-09-11 22:25 | HOSPPROG ---
Hospitalist Progress Note Assessment/Plan: The patient is a 63-year-old female with PMH cholelithiasis and cholecystitis who was admitted for choledocholithiasis. ASSESSMENT/PLAN: Acute choledocholithiasis, status post ERCP with sphincterotomy and stone removal Cholelithiasis Abdominal pain, secondary to above -planning for surg in AM - gall bladder removal. Patient would like to go home same day. -prn analgesia/antiemetics. VTE prophylaxis: SCDs Code Status: Full code Status: Inpatient for greater than 2 midnight stay. Disposition: Med surge - DC anticipated tomorrow if pt does well after surgery. ____ SUBJECTIVE: Today patient was feeling well. No pain. Looking forward to surgery in AM. OBJECTIVE: Physical Exam: General: The patient is a who is a female alert and in no acute distress. HEENT: normocephalic, extraocular movements intact, conjunctivae clear. Mucous membranes moist. Neck: trachea midline, no visible masses. Abd: nondistended. nontender throughout. Musculoskeletal: Normal muscle tone/bulk. Neuro: cranial nerves II XII grossly intact. Intact gross motor and sensory function. Psych: Appropriate mood and appropriate affect. Skin: Mild pallor. No petechiae. Labs/Imaging/Other Tests: Personally reviewed/interpreted. RUQ ultrasound-cholelithiasis. Dilated bile duct. Abdominal CT-cholelithiasis, dilated common bile duct. Objective: Vital Signs Temp Pulse Resp BP Pulse Ox 36.7 C 71 16 174/103 H 95 09/11/18 20:00 09/11/18 20:00 09/11/18 16:00 09/11/18 20:59 09/11/18 20:00 Laboratory Results 09/11/18 04:33 09/11/18 04:33 09/10/18 09/11/18 09/12/18 05:59 05:59 05:59 Intake Total 1000 1200 Output Total 0 Balance 1000 1200 ICD10 Worksheet Patient Problems: Problems Problem Status Onset Choledocholithiasis Acute
[2018-09-12] MEDS ORDERED: cefOXitin SODIUM 2 GM in NS 100 ML IV ONE (06:00)
--- NOTE | 2018-09-12 08:48 | PDHPUP ---
History & Physical Update H&P update statement: This history and physical update is based on an assessment of the patient which was completed after admission or registration (within 24 hours), but prior to the surgery/procedure. H&P update: H&P reviewed & patient examined, no change in patient's condition since H&P completed
--- NOTE | 2018-09-12 09:31 | GCON ---
DATE OF CONSULTATION: 09/10/2018 CHIEF COMPLAINT: Choledocholithiasis. HISTORY OF PRESENT ILLNESS: This is an otherwise healthy 63-year-old female who has been admitted to the medical service since the . Briefly, she presented to the emergency department that afterno on with abdominal pain with nausea and vomiting. She stated that she had not really felt well for th e last 3 weeks and that over the last 24 hours prior to presentation, the nausea, vomiting, and abdom inal pain actually got worse. She described her pain as epigastric pain radiating down her right abd omen associated with nausea, 7/10 in intensity, better with narcotics, worse with any kind of activit y or oral intake. Since her admission, she subsequently had imaging which showed choledocholithiasis , but no other secondary signs of either elevated liver functions or pancreatitis. She subsequently went to the GI suite where ERCP was successful at stone extraction. PAST MEDICAL HISTORY: Significant for asthma. PAST SURGICAL HISTORY: No abdominal surgeries, ERCP 2 days ago. FAMILY HISTORY: Both Mother and Father had cholecystectomies for gallbladder disease. CURRENT MEDICATIONS: Reviewed. SOCIAL HISTORY: Denies alcohol or illicit drug use. Is . is at bedside. Very activ e. REVIEW OF SYSTEMS: A full 10-point review is performed. PHYSICAL EXAMINATION: VITAL SIGNS: Temperature 36.6, blood pressure 146/88, heart rate is 68, and s he is 92% on room air. CONSTITUTIONAL: She is in no apparent distress and appears comfortable. EYE S: Her pupils are equal, round, and reactive to light and accommodation. She has anicteric sclerae. Extraocular movements are intact. EARS, NOSE, MOUTH, AND THROAT: She has moist mucous membranes. Her hearing is normal. She has normal dentition. CARDIOVASCULAR: She has a regular rate and rhyth m without any murmurs, rubs, or gallops. RESPIRATORY: She has no respiratory distress, rales, or rh onchi, and she is otherwise clear to auscultation. GI: Her abdomen is minimally tender in the epiga strium. Negative Villavicenico sign. There is no rebound tenderness, guarding, or masses. SKIN: Warm. N ormal color. No rashes or abrasions. MUSCULOSKELETAL: Full strength. No muscular tenderness. Nor mal joint range of motion. NEUROLOGIC: She is alert and oriented x3. Her cranial nerves 2-12 appea r intact, and she has no weakness or numbness. PSYCH: She is interacting appropriately. She is not anxious or encephalopathic. Her thought process is linear. LYMPH, HEME, AND IMMUNOLOGIC: She has no cervical, groin, or supraclavicular lymphadenopathy appreciated. LABORATORY DATA: White blood cell count normal at 5, H and H stable at 12 and 37, platelets 230. Ch emistry shows normal liver function tests with a normal lipase at 50. IMAGING: Includes an abdominal ultrasound and abdominal CT, both of which were personally reviewed. These show choledocholithiasis and cholelithiasis without any secondary signs of cholecystitis inclu ding a normal gallbladder wall and no pericholecystic fluid. ASSESSMENT AND PLAN: A 63-year-old female with choledocholithiasis. After reviewing the patient's i maging and exam, my recommendation was for a cholecystectomy this admission given the fact that she h as had progressing pain over the last few weeks and has choledocholithiasis. I feel that the likelih ood that she will have future attacks is high, and my recommendation would be to take the offending s ource out. I described the risks, benefits, and alternatives to surgery to her, her , and her daughter. They want to think it over but will likely proceed with surgery. /[id number]/MODL
[2018-09-12] MEDS ORDERED: LR 1,000 ML IV ONE (11:12)
[2018-09-12] MEDS ORDERED: MIDAZOLAM 2 MG/2 ML VIAL ONE (12:11)
[2018-09-12] MEDS ORDERED: MIDAZOLAM 2 MG/2 ML VIAL IVP ONE (12:12)
--- NOTE | 2018-09-12 12:12 | PDANEPAE ---
ANE History of Present Illness cholelithiasis, here for lap cholecystectomy ANE Past Medical History - Cardiovascular History Hx Hypertension: No Hx Arrhythmias: No Hx Chest Pain: No Hx Coronary Artery / Peripheral Vascular Disease: No - Pulmonary History Hx COPD: No Hx Asthma/Reactive Airway Disease: Yes Hx Sleep Apnea: No Sleep Apnea Screening Result - Last Documented: Negative - Endocrine History Hx Diabetes: No - Chronic Pain History Chronic Pain: No ANE Review of Systems Review of Systems: ANE Patient History - Allergies Allergies/Adverse Reactions: codeine Allergy (Verified 09/10/18 08:29) Vomiting gentamicin sulfate [From Garamycin] Allergy (Verified 09/10/18 08:29) Hives - Home Medications Home Medications: Albuterol [Proventil Inhaler HFA (*)] 1 - 2 puffs IH DAILY PRN 09/10/18 [Last Taken Unknown] Aspirin [Aspirin 325 mg (*)] 325 mg PO DAILY PRN 09/10/18 [Last Taken Unknown] Herbals/Supplements -Info Only 1 ea PO DAILY 09/10/18 [Last Taken Unknown] Leonore-3 Fatty Acids [Fish Oil 1000 mg (*)] 1,000 mg PO DAILY 09/10/18 [Last Taken Unknown] - NPO status NPO Since - Liquids (Date): 09/12/18 NPO Since - Liquids (Time): 00:00 NPO Since - Solids (Date): 09/12/18 NPO Since - Solids (Time): 00:00 - Smoking Hx Smoking Status: Never smoked - Alcohol Use Alcohol Use: Rarely ANE Labs/Vital Signs - Labs Result Diagrams: 09/11/18 04:33 09/11/18 04:33 - Vital Signs Blood Pressure: 146/88 Heart Rate: 68 Respiratory Rate: 16 O2 Sat (%): 92 Height: 175.26 cm Weight: 83.915 kg ANE Physical Exam - Airway Neck exam: FROM Mallampati Score: Class 2 Mouth exam: normal dental/mouth exam - Pulmonary Pulmonary: no respiratory distress - Cardiovascular Cardiovascular: regular rate and rhythym - ASA Status ASA Status: II ANE Anesthesia Plan Anesthesia Plan: general endotracheal anesthesia Total IV Anesthesia: No
[2018-09-12] MEDS ORDERED: ONDANSETRON 4 MG/2 ML VIAL ONE (12:13)
[2018-09-12] MEDS ORDERED: LIDOCAINE 2% 5 ML SDV ONE (12:13)
[2018-09-12] MEDS ORDERED: DEXAMETHASONE 4 MG/ML VIAL ONE (12:13)
[2018-09-12] MEDS ORDERED: ROCURONIUM 50 MG/5 ML VIAL ONE (12:13)
[2018-09-12] MEDS ORDERED: PROPOFOL 200 MG/20 ML VIAL ONE (12:14)
[2018-09-12] MEDS ORDERED: fentaNYL 250 MCG/5 ML INJ ONE (12:14)
[2018-09-12] MEDS ORDERED: BUPIVACAINE 0.25% 30 ML SDV ONE (12:17)
[2018-09-12] MEDS ORDERED: EPINEPHrine 1 MG/ML INJ ONE (12:18)
[2018-09-12] MEDS ORDERED: oxyCODONE IR 5 MG TAB PO PRN (12:54)
[2018-09-12] MEDS ORDERED: LR 500 ML IV PRN (12:54)
[2018-09-12] MEDS ORDERED: ALBUTEROL 3 ML DEYVIAL IH PRN (12:54)
[2018-09-12] MEDS ORDERED: NALOXONE HCL 0.4 MG/ML INJ IVP PRN (12:54)
[2018-09-12] MEDS ORDERED: MEPERIDINE 25 MG/0.5 ML AMP IVP PRN (12:54)
[2018-09-12] MEDS ORDERED: HYDROmorphONE/DILAUDID 2 MG/ML INJ IVP PRN (12:54)
[2018-09-12] MEDS ORDERED: HYDROmorphONE/DILAUDID 2 MG/ML INJ ONE (12:56)
[2018-09-12] MEDS ORDERED: SUGAMMADEX SODIUM 200 MG/2 ML VIAL IVP ONE (13:07)
--- NOTE | 2018-09-12 13:17 | POSTOPPROG ---
Post Op Note Date of Operation: 09/12/18 Surgeon: George Shelton [employer] Supervisor: DOROTHY Dash Anesthesiologist: Toya Anesthesia: GET(General Endotracheal) Pre-op Diagnosis: Choledocholithiasis Post-op Diagnosis: chronic cholecystitis Procedure: lap sherie Findings: omental adhesions, critical view obtained Inf/Abcess present in the surg proc area at time of surgery?: No EBL: Minimal Total fluids administered: 1000cc NS washout Specimen(s): GB
[2018-09-12] MEDS ORDERED: fentaNYL 100 MCG/2 ML INJ ONE (13:44)
[2018-09-12] MEDS: fentaNYL 100 MCG/2 ML INJ IVP PRN ×2 (13:45→13:53)
--- NOTE | 2018-09-12 13:50 | POSTANESTH ---
Post Anesthetic Evaluation Cardiovascular Status: Normal, Stable Respiratory Status: Normal, Stable Level of Consciousness/Mental Status: Can Participate in Eval Pain Control: Adequate, Prn Tx Ordered Nausea/Vomiting Control: Adequate, Prn Tx Ordered Complications Possibly Related to Anesthesia: None Noted
--- NOTE | 2018-09-12 14:03 | GOP ---
DATE OF OPERATION: 09/12/2018 SURGEON: George Shelton MD HV[employer] FIELD SERVICE TECHNICIAN: Samaria Dash NP ANESTHESIA: General endotracheal. ANESTHESIOLOGIST: Ashely Pittman DO PREOPERATIVE DIAGNOSIS: Choledocholithiasis. POSTOPERATIVE DIAGNOSIS: Choledocholithiasis with chronic cholecystitis. PROCEDURE PERFORMED: Laparoscopic cholecystectomy. FINDINGS: A fair amount of omental adhesions to the anterior wall of the gallbladder. Critical view was obtained. SPECIMENS: Gallbladder. ESTIMATED BLOOD LOSS: 5 cc. DESCRIPTION OF PROCEDURE: The patient was greeted in the preoperative suite. Once again, risks, benefits, and alternatives were discussed. Consent was signed. She was then brought back to the operative suite, placed on the OR table in supine position. After all anesthesia machines, including SCDs were on and functioning, [employer] time-out was performed. After successful induction of general anesthesia, the patient's abdomen was prepped and draped in the typical sterile fashion. I commenced the procedure by making an infraumbilical cutdown through which the Veress needle was passed. I achieved pneumoperitoneum to 15 mmHg, which was well tolerated by the patient. Through this, I then inserted a 12 mm Visiport. Once successfully in the abdomen, I placed 3 additional 5 mm trocars, 1 in the subxiphoid, 2 in the right upper quadrant, all of these were done under direct visualization. Once successfully in the abdomen, I retracted the gallbladder cranially and had to sharply dissect off some omental adhesions. Once dissected off, I turned my attention toward the infundibulum. Using a combination of electrocautery and blunt dissection, I identified 2 and only 2 structures leading toward the gallbladder. I first clipped the cystic artery and divided it, in the same fashion, the cystic duct, 2 distal, 1 proximal. I then took the gallbladder off the liver bed using electrocautery. It was placed in an EndoCatch bag and removed. I then irrigated the right upper quadrant. I inspected my clips, which were intact and hemostatic. I closed the infraumbilical port site with an 0 Vicryl stitch using the Tigre-Thomasen fascial closure device. I evacuated my pneumoperitoneum and closed the skin with Monocryl. Dermabond was then placed. The patient was then extubated in the operative suite and taken to the PACU in satisfactory condition. DRAINS: None. COUNTS: All counts were reported as correct x2. /[id number]/MODL MTDD
[2018-09-12 15:20] VITALS: BP 135/91
--- NOTE | 2018-09-12 15:55 | HOSPPROG ---
Hospitalist Progress Note Assessment/Plan: 63 yo F w chronic cholecystitis s/p lap sherie home today > 30 minutes on dc Subjective: s/p uncomplicated lap sherie Objective: Vital Signs Temp Pulse Resp BP Pulse Ox 36.6 C 88 16 135/91 H 93 09/12/18 15:20 09/12/18 15:20 09/12/18 15:20 09/12/18 15:20 09/12/18 15:20 Laboratory Results 09/11/18 04:33 09/11/18 04:33 09/11/18 09/12/18 09/13/18 05:59 05:59 05:59 Intake Total 1200 400 310 Output Total 0 10 Balance 1200 400 300 - Physical Exam Constitutional: no apparent distress, appears nourished Eyes: PERRL, anicteric sclera Ears, Nose, Mouth, Throat: moist mucous membranes, hearing normal Cardiovascular: regular rate and rhythym, no murmur, rub, or gallop Respiratory: no respiratory distress, no rales or rhonchi Gastrointestinal: normoactive bowel sounds, soft, non-tender abdomen Genitourinary: no bladder fullness, No gimenez in urethra Skin: warm, normal color Musculoskeletal: full muscle strength Neurologic: AAOx3 ICD10 Worksheet Patient Problems: Problems Problem Status Onset Choledocholithiasis Acute
[2018-09-12] MEDS: HYDROCODONE/APAP 5/325 TAB PO PRN (16:07)
== END 2018-09-12 17:24 | disposition home or self-care (01) | DRG 419 ==
LOC: CED 15:29 → OBSVTOIN 20:42 → F3E 21:21
PROVIDERS: ADMIT Internal Medicine; ATTEND Internal Medicine
PROC: 0FC98ZZ Extirpation of Matter from Common Bile Duct, Via Natural or Artificial Opening Endoscopic (ICD-10-PCS; 2018-09-10)
PROC: 0FT44ZZ Resection of Gallbladder, Percutaneous Endoscopic Approach (ICD-10-PCS; principal; 2018-09-12 12:00)
DX: K80.44 Calculus of bile duct with chronic cholecystitis without obstruction (principal); J45.20 Mild intermittent asthma, uncomplicated
CPT/HCPCS: 74177-PO; 76705-PO; 80053-PO; 84484-PO; 96374; J0171; J0360; J0694; J1100; J1170; J1610; J2001; J2250; J2405; J2550; J2704; J3010; Q9961; Q9967